=== PATIENT | female | born 1960 | race Caucasian/White ===

== ENCOUNTER 2019-11-21 12:45 | Emergency (ER) | payer OTHER, SELFPAY ==
[2019-11-21 12:47] VITALS: BP 132/76; PULSE 70; RESP 17; O2SAT 98; BMI 21.9
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
[2019-11-21 13:31] LABS: Basophils % 0.3 %; Eosinophils # 0.1 10^3/uL (0.0-0.8); Eosinophils % 1.6 %; Lymphocytes # 2.7 10^3/uL (0.8-4.8); Lymphocytes % 44.3 %; Mean Corpuscular HGB Conc 33.3 g/dL (30.0-36.0); Mean Corpuscular Hemoglobin 31.5 pg (28.0-34.0); Mean Corpuscular Volume 94.4 fL (81-99); Mean Platelet Volume 10.5 fL (7.4-10.4); Monocytes # 0.4 10^3/uL (0.2-0.9); Monocytes % 6.9 %; Neutrophils # 2.9 10^3/uL (1.8-7.7); Neutrophils % 46.6 %; Nucleated Red Blood Cells % 0 %; Platelet Count 192 10^3/cmm (130-400); Red Blood Count 4.45 10^6/uL (4.1-5.3); Red Cell Distribution Width 12.6 % (12.1-15.1); White Blood Count 6.2 10^3/uL (4.0-10.0)
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
[2019-11-21 13:48] VITALS: O2SAT 98
[2019-11-21 13:49] LABS: Anion Gap 17.1 (5-19); Blood Urea Nitrogen 27 mg/dL (6-20); Calcium 9.5 mg/dL (8.5-10.5); Carbon Dioxide 23 mmol/L (22-29); Chloride 101 mmol/L (98-107); Creatinine Clr Calc Pharmacy 99.3882; Glomerular Filtration Rate 102.3 mL/min (90-130); Glucose 102 mg/dL (65-115); Osmolality Calculated 281 mOsm/kg (285-295); Potassium 4.1 mmol/L (3.5-5.1); Sodium 137 mmol/L (136-145)
[2019-11-21] MEDS: ketorolac 60 mg/2 mL INJ IM (14:17)
[2019-11-21 14:34] LABS: Add Urine Microscopic? NO
[2019-11-21 14:40] LABS: Bilirubin Urine Neg (NEGATIVE); Blood Urine Neg (Negative); Glucose Urine UA Norm (Normal); Ketones Urine Negative (Negative); Leukocyte Esterase Urine Negative (Negative); Nitrate Urine Negative (Negative); Protein Urine Neg (Negative); Urine Appearance Clear (CLEAR); Urine Color Straw (Yellow); Urobilinogen Urine Norm (Negative); pH Urine 5 (5-7)
[2019-11-21 16:00] VITALS: BP 117/73; PULSE 65; RESP 16; O2SAT 95
== END 2019-11-21 16:01 | disposition home or self-care (01) ==
PROVIDERS: Emergency Provider Family Medicine; Family Provider Family Medicine; PCP Internal Medicine
DX: S39.012A Strain of muscle, fascia and tendon of lower back, initial encounter (principal); J43.9 Emphysema, unspecified; F17.200 Nicotine dependence, unspecified, uncomplicated; V89.2XXA Person injured in unspecified motor-vehicle accident, traffic, initial encounter
CPT/HCPCS: 36415; 70450; 72040; 80048; 81003; 85025; 96372; 99282; 99283; A9270; J1885

== ENCOUNTER 2020-09-18 10:50 | Emergency (ER) | payer OTHER, SELFPAY ==
[2020-09-18] VITALS (7 sets, daily range): BP systolic 134–146; BP diastolic 68–108; PULSE 54–74; RESP 16–20; TEMP 36.7; O2SAT 95–99; BMI 25.0
--- NOTE | 2020-09-18 11:00 | W.ED.CHESTPA ---
HPI - Chest Pain General: Chief Complaint: Chest Pain Stated Complaint: chest pain, pain in left shoulder Time Seen by Provider: 09/18/20 10:59 Source: patient Mode of arrival: ambulatory History of Present Illness: HPI narrative: 59-year-old female with no cardiac history presents with intermittent left-sided chest pain over the past 2 days. Becoming more frequent. Described it as sharp, stabbing, radiates towards left shoulder upper arm. Associated with shortness of breath. Episodes last approximately 30 seconds and then get better. Not associated with exertion or position. Not worse with movement, inspiration, or palpation. No associated nausea or diaphoresis. She took a Xanax and 3 of aspirin this morning. Over the past several days she has decided to stop taking some of her other routine medications including Prozac, gabapentin, Risperdal. She feels that they are giving her too many side effects. She does smoke every day. No recent worsening cough, fever, or pleuritic chest pain. No recent weight loss, heat intolerance, insomnia. complaint: chest pain Onset (ago): day(s) Timing of current episode: episodic Onset: during rest Pain location: left chest Pain radiation: left arm and left shoulder Quality: sharp and shooting Relieving factors: nothing Exacerbating factors: nothing Associated symptoms: Reports palpitations; Deny abdominal pain, fever(s), nausea or vomiting Review of Systems General: Reports: 10 or more systems reviewed and unremarkable except in HPI and below Const: Denies: fever(s), chills, body aches, change in weight or night sweats Eyes: Denies: change in vision or blurry vision Card: Reports: chest pain and palpitations; Denies: irregular heart rhythm, edema, swelling of feet/ankles, lightheadedness, dyspnea on exertion or orthopnea Resp: Denies: wheezing, pain on inspiration or change in phlegm color GI: Denies: abdominal pain, nausea or vomiting : Denies: flank pain, difficulty voiding or dysuria Musc: Denies: extremity pain, extremity swelling or muscle weakness Skin/Breast: Denies: rash, pruritus or erythema Neuro: Denies: headache(s), numbness in extremities or weakness in extremities Psych: Denies: anxiety or depression [facility] ED PFSH: Medical History (Updated 09/18/20 @ 14:37 by Darling Cedillo MD) Emphysema of lung Laceration of left rotator cuff Surgical History H/O eye surgery History of hysterectomy Hx of oophorectomy Social History Smoking and tobacco status: current every day smoker Physical Exam Const: COMMON NORMALS: no acute distress, average body habitus, patient oriented x3, healthy appearing and alert GENERAL APPEARANCE: cooperative, comfortable and anxious; not in distress and not ill appearing ORIENTATION/CONSCIOUSNESS: Yes oriented to person, Yes oriented to place and Yes oriented to time HENMT: COMMON NORMALS: normocephalic and atraumatic HEAD & SCALP: normocephalic and atraumatic FACE & SINUS: normal facial exam and face symmetric Eye: COMMON NORMALS: Equal, round and reactive pupils present, EOMs intact bilaterally, conjunctivae normal and negative for no scleral icterus PERIORBITAL: periorbital findings normal EYELID: eyelids normal CONJUNCTIVA: Yes conjunctivae normal PUPIL: Yes Equal, round and reactive pupils present Neck/C-Spine: COMMON NORMALS: full ROM, no lymphadenopathy and supple Lymph: LYMPHATIC: no lymphadenopathy noted Chest: COMMONS NORMALS: normal inspection of the chest and normal palpation of entire chest wall CHEST: No abnormal inspection of the chest, No crepitus and No Ecchymosis present Resp: COMMON NORMALS: normal respiratory effort and No use of accessory muscles EFFORT & INSPECTION: Yes able to speak in complete sentences, No tachypneic and No respiratory distress Cardio: COMMON NORMALS: regular rate, regular rhythm, S1 normal heart sound present, S2 normal heart sound present and No murmurs present (Cardio) RATE: regular rate RHYTHM: regular rhythm HEART SOUNDS: S1 normal heart sound present and S2 normal heart sound present GI: COMMON NORMALS: Normal to inspection, nondistended, normoactive bowel sounds present, Soft to palpation, non-tender and No hepatosplenomegaly present INSPECTION: Yes normal to inspection PALPATION: Yes Soft to palpation and Yes No hepatosplenomegaly present Extremity: COMMON NORMALS: normal to inspection, full ROM and capillary refill normal GENERAL: Yes normal exam except as noted Neuro: COMMON NORMALS: patient oriented x3, CN's II-XII intact bilaterally and no focal motor deficits SENSORIUM/ORIENTATION: Yes alert, Yes oriented to person, Yes oriented to place and Yes oriented to time Psych: COMMON NORMALS: mental status grossly normal and cooperative APPEARANCE: Yes grossly normal ACTIVITY/MOTOR BEHAVIOR: Yes appropriate eye contact MOOD & AFFECT: Yes anxious Skin: COMMON NORMALS: no rashes or lesions noted, no wounds and no jaundice GENERAL SKIN EXAM: no rashes or lesions noted Course Vital Signs: Vital signs: Vital Signs Temperature 98.1 F 09/18/20 11:03 Pulse Rate 74 09/18/20 15:19 Respiratory Rate 18 09/18/20 15:19 Blood Pressure 143/68 09/18/20 15:19 Pulse Oximetry 98 09/18/20 15:19 MDM - Chest Pain MDM Narrative: Medical decision making narrative: 59-year-old female with left-sided chest pain, episodic, becoming more frequent over the past 2 days. No known history of coronary artery disease. Baseline troponin minimally elevated,16- 2 hour repeat: 13 (delta -3) D-dimer: Minimally elevated 0.72, CTA: No acute PE or other abnormality Chest x-ray does not show any acute process. CRP normal?unlikely to be inflammatory or infectious process. Increased BUN to creatinine ratio on chemistry, with an anion gap of 25. On reevaluation, patient was sitting up, anxious, waiting to get discharged. She is not currently having any chest pain. Vital signs were noted to be stable. Discussed other possible causes of her chest pain, recommended that she follow-up promptly with her PCP. Differential Diagnosis: Cardiac arrest differential diagnosis: Likely acute massive pulmonary embolism and acute myocardial infarction Medical Records: Attestation: I reviewed the patient's medical records. Lab Data: Labs: Lab Results 09/18/20 09/18/20 09/18/20 Range/Units 11:37 11:38 11:38 WBC (4.0-10.0) 10^3/ uL RBC (4.1-5.3) 10^6/u L Hgb (11.5-15.3) g/dL Hct (37.0-47.0) % MCV (81-99) fL MCH (28.0-34.0) pg MCHC (30.0-36.0) g/dL RDW (12.1-15.1) % Plt Count (130-400) 10^3/c mm MPV (7.4-10.4) fL Neut % (Auto) % Lymph % (Auto) % [place] % (Auto) % Eos % (Auto) % Baso % (Auto) % Neut # (Auto) (1.8-7.7) 10^3/u L Lymph # (Auto) (0.8-4.8) 10^3/u L [place] # (Auto) (0.2-0.9) 10^3/u L Eos # (Auto) (0.0-0.8) 10^3/u L Baso # (Auto) (0.0-0.1) 10^3/u L Nucleated RBC % (a uto) % Nucleated RBCs # /100WBC PT Cancelled INR Cancelled D-Dimer Cancelled Sodium 145 (136-145) mmol/L Potassium 3.6 (3.5-5.1) mmol/L Chloride 99 (98-107) mmol/L Carbon Dioxide 24 (22-29) mmol/L Anion Gap 25.6 H (5-19) BUN 21 H (6-20) mg/dL Creatinine 0.7 (0.5-0.9) mg/dL GFR Calculation 85.6 L (90-130) mL/min Glucose 96 (65-115) mg/dL Calculated Osmolal ity 303 H (285-295) mOsm/k g Lactate (0.5-2.2) mmol/L Calcium 8.9 (8.5-10.5) mg/dL Magnesium (1.7-2.3) mg/dL Total Bilirubin 0.3 (0.15-1.2) mg/dL AST 32 (0-32) U/L ALT 21 (0-33) U/L Alkaline Phosphata se 82 (35-105) IU/L Troponin T Baselin e (0-10) ng/L Troponin T 120 Min chicken ranch (0-10) ng/L Delta Troponin T (0-10) ABS# C-Reactive Protein (0.0-4.9) mg/L NT-Pro-B Natriuret Pep 42 (0-125) pg/mL Total Protein 6.5 L (6.6-8.7) g/dL Albumin 4.1 (3.5-5.2) g/dL Globulin 2.4 (1.3-4.6) g/dL Urine Color Yellow (Yellow) Urine Appearance Clear (CLEAR) Urine pH 5 (5-7) Ur Specific Gravit y 1.020 (1.005-1.030) Urine Protein Neg (Negative) Urine Glucose (UA) Norm (Normal) Urine Ketones Negative (Negative) Urine Blood Neg (Negative) Urine Nitrate Negative (Negative) Urine Bilirubin Neg (Negative) Urine Urobilinogen Neg (Negative) mg/dL Ur Leukocyte Bianka ase Negative (Negative) 09/18/20 09/18/20 09/18/20 Range/Units 11:38 11:38 11:38 WBC 7.6 (4.0-10.0) 10^3/ uL RBC 4.36 (4.1-5.3) 10^6/u L Hgb 13.7 (11.5-15.3) g/dL Hct 41.7 (37.0-47.0) % MCV 95.6 (81-99) fL MCH 31.4 (28.0-34.0) pg MCHC 32.9 (30.0-36.0) g/dL RDW 12.5 (12.1-15.1) % Plt Count 180 (130-400) 10^3/c mm MPV 10.7 H (7.4-10.4) fL Neut % (Auto) 57.4 % Lymph % (Auto) 35.3 % [place] % (Auto) 5.8 % Eos % (Auto) 0.7 % Baso % (Auto) 0.5 % Neut # (Auto) 4.38 (1.8-7.7) 10^3/u L Lymph # (Auto) 2.7 (0.8-4.8) 10^3/u L [place] # (Auto) 0.4 (0.2-0.9) 10^3/u L Eos # (Auto) 0.1 (0.0-0.8) 10^3/u L Baso # (Auto) 0.0 (0.0-0.1) 10^3/u L Nucleated RBC % (a uto) 0 % Nucleated RBCs # 0.0 /100WBC PT INR D-Dimer Sodium (136-145) mmol/L Potassium (3.5-5.1) mmol/L Chloride (98-107) mmol/L Carbon Dioxide (22-29) mmol/L Anion Gap (5-19) BUN (6-20) mg/dL Creatinine (0.5-0.9) mg/dL GFR Calculation (90-130) mL/min Glucose (65-115) mg/dL Calculated Osmolal ity (285-295) mOsm/k g Lactate 0.9 (0.5-2.2) mmol/L Calcium (8.5-10.5) mg/dL Magnesium (1.7-2.3) mg/dL Total Bilirubin (0.15-1.2) mg/dL AST (0-32) U/L ALT (0-33) U/L Alkaline Phosphata se (35-105) IU/L Troponin T Baselin e 16 H (0-10) ng/L Troponin T 120 Min chicken ranch (0-10) ng/L Delta Troponin T (0-10) ABS# C-Reactive Protein (0.0-4.9) mg/L NT-Pro-B Natriuret Pep (0-125) pg/mL Total Protein (6.6-8.7) g/dL Albumin (3.5-5.2) g/dL Globulin (1.3-4.6) g/dL Urine Color (Yellow) Urine Appearance (CLEAR) Urine pH (5-7) Ur Specific Gravit y (1.005-1.030) Urine Protein (Negative) Urine Glucose (UA) (Normal) Urine Ketones (Negative) Urine Blood (Negative) Urine Nitrate (Negative) Urine Bilirubin (Negative) Urine Urobilinogen (Negative) mg/dL Ur Leukocyte Bianka ase (Negative) 09/18/20 09/18/20 09/18/20 Range/Units 11:38 11:38 13:25 WBC (4.0-10.0) 10^3/ uL RBC (4.1-5.3) 10^6/u L Hgb (11.5-15.3) g/dL Hct (37.0-47.0) % MCV (81-99) fL MCH (28.0-34.0) pg MCHC (30.0-36.0) g/dL RDW (12.1-15.1) % Plt Count (130-400) 10^3/c mm MPV (7.4-10.4) fL Neut % (Auto) % Lymph % (Auto) % [place]uming % (Auto) % Eos % (Auto) % Baso % (Auto) % Neut # (Auto) (1.8-7.7) 10^3/u L Lymph # (Auto) (0.8-4.8) 10^3/u L Cuming # (Auto) (0.2-0.9) 10^3/u L Eos # (Auto) (0.0-0.8) 10^3/u L Baso # (Auto) (0.0-0.1) 10^3/u L Nucleated RBC % (a uto) % Nucleated RBCs # /100WBC PT INR D-Dimer Sodium (136-145) mmol/L Potassium (3.5-5.1) mmol/L Chloride (98-107) mmol/L Carbon Dioxide (22-29) mmol/L Anion Gap (5-19) BUN (6-20) mg/dL Creatinine (0.5-0.9) mg/dL GFR Calculation (90-130) mL/min Glucose (65-115) mg/dL Calculated Osmolal ity (285-295) mOsm/k g Lactate (0.5-2.2) mmol/L Calcium (8.5-10.5) mg/dL Magnesium 2.1 (1.7-2.3) mg/dL Total Bilirubin (0.15-1.2) mg/dL AST (0-32) U/L ALT (0-33) U/L Alkaline Phosphata se (35-105) IU/L Troponin T Baselin e (0-10) ng/L Troponin T 120 Min chicken ranch 13.00 H (0-10) ng/L Delta Troponin T -3.00 L (0-10) ABS# C-Reactive Protein 2.4 (0.0-4.9) mg/L NT-Pro-B Natriuret Pep (0-125) pg/mL Total Protein (6.6-8.7) g/dL Albumin (3.5-5.2) g/dL Globulin (1.3-4.6) g/dL Urine Color (Yellow) Urine Appearance (CLEAR) Urine pH (5-7) Ur Specific Gravit y (1.005-1.030) Urine Protein (Negative) Urine Glucose (UA) (Normal) Urine Ketones (Negative) Urine Blood (Negative) Urine Nitrate (Negative) Urine Bilirubin (Negative) Urine Urobilinogen (Negative) mg/dL Ur Leukocyte Bianka ase (Negative) Discharge Plan Discharge Patient Disposition: Home Clinical Impression: Chest pain not due to acute coronary syndrome Chest pain Qualifiers: Chest pain type: precordial pain Qualified Code(s): R07.2 - Precordial pain Condition: Stable Prescriptions: No Action fluoxetine 40 mg capsule 40 mg PO DAILY@0500 RF: 0 cetirizine [Zyrtec] 10 mg Tablet 10 mg PO DAILY@0500 RF: 0 alprazolam 0.5 mg tablet 0.5 mg PO TID PRN (Reason: Anxiety) RF: 0 diphenhydramine HCl [Benadryl] 25 mg Capsule 25 mg PO BEDTIME@2100 RF: 0 trazodone 150 mg tablet 150 mg PO BEDTIME@2100 RF: 0 PNV cmb#95-ferrous fumarate-FA [] 28 mg iron- 800 mcg Tablet 1 tab PO DAILY@0500 RF: 0 Aspir-81 81 mg Tablet,Delayed Release (Dr/Ec) 81 mg PO DAILY@0500 RF: 0 gabapentin 100 mg capsule 100 mg PO BID@0500,2100 RF: 0 risperidone 0.5 mg tablet 0.5 mg PO BEDTIME@2100 RF: 0 Discharge Orders: Discharge ED (Routine); Ordered 09/18/20 Ordered By: Darling Cedillo Referrals: Kris Mcgraw DO [Primary Care Provider] - Discharge Diet: Usual diet Discharge Activity: Resume usual activity Patient Instructions: Chest Pain - Noncardiac Activity Restrictions/Additional Instructions: Call to schedule follow-up appoint with your primary care doctor in the next 3 to 5 days. Return immediately to the ER if you develop fever, worsening chest pain, difficulty breathing, or any other concerning symptoms. Coding Level of Care Code ED Pricing Actuary for Billy Fwyan Exam Comprehensive
--- NOTE | 2020-09-18 11:01 | ECG_ITS ---
[facility] Test Date: 2020-09-18 Pat Name: Charis Redd Department: Room: Gender: Female Software Engineer Advisor: : 1960 Requested By: Darling Cedillo Order Number: [id number] Antoni MD: Daniel Joseph M.D. Measurements Intervals [place] Rate: 66 P: 56 OK: 162 QRS: 42 QRSD: 94 T: 24 QT: 427 QTc: 449 Interpretive Statements SINUS RHYTHM No previous ECG available for comparison Electronically Signed On 09-18-2020 17:52:03 CHARITY FUNDRAISER by Daniel Joseph M.D. [id number]
--- NOTE | 2020-09-18 11:01 | XRR_ITS ---
PROCEDURE INFORMATION: Exam: XR Chest, 1 View Exam date and time: 09/18/2020 11:19 AM Age: 59 years old Clinical indication: Chest pain; Prior surgery TECHNIQUE: Imaging protocol: XR of the chest Views: 1 view. COMPARISON: No relevant prior studies available. FINDINGS: Tubes, catheters and devices: There is a surgical suture projecting over the left humeral head. Lungs: Unremarkable. No consolidation. Pleural space: Unremarkable. No pleural effusion. No pneumothorax. Heart/Mediastinum: Unremarkable. No cardiomegaly. Bones/joints: Unremarkable. XR/XR chest 1V portable [id number] IMPRESSION: There are no acute concerning abnormalities.
[2020-09-18 11:42] LABS: Add Urine Microscopic? NO
[2020-09-18 11:57] LABS: Bilirubin Urine Neg (Negative); Blood Urine Neg (Negative); Glucose Urine UA Norm (Normal); Ketones Urine Negative (Negative); Leukocyte Esterase Urine Negative (Negative); Nitrate Urine Negative (Negative); Protein Urine Neg (Negative); Urine Appearance Clear (CLEAR); Urine Color Yellow (Yellow); Urobilinogen Urine Neg (Negative); pH Urine 5 (5-7)
[2020-09-18 12:10] LABS: Troponin(5th) Baseline 16 ng/L (0-10)
[2020-09-18 12:16] LABS: Alanine Aminotransferase 21 U/L (0-33); Albumin Level 4.1 g/dL (3.5-5.2); Alkaline Phosphatase 82 IU/L (35-105); Anion Gap 25.6 (5-19); Aspartate Amino Transferase 32 U/L (0-32); Blood Urea Nitrogen 21 mg/dL (6-20); Calcium 8.9 mg/dL (8.5-10.5); Carbon Dioxide 24 mmol/L (22-29); Chloride 99 mmol/L (98-107); Globulin 2.4 g/dL (1.3-4.6); Glomerular Filtration Rate 85.6 mL/min (90-130); Glucose 96 mg/dL (65-115); NT Pro B Type Natriuretic Pept 42 pg/mL (0-125); Osmolality Calculated 303 mOsm/kg (285-295); Potassium 3.6 mmol/L (3.5-5.1); Sodium 145 mmol/L (136-145); Total Bilirubin 0.3 mg/dL (0.15-1.2); Total Protein 6.5 g/dL (6.6-8.7)
[2020-09-18 12:24] LABS: Basophils % 0.5 %; Eosinophils # 0.1 10^3/uL (0.0-0.8); Eosinophils % 0.7 %; Hematocrit 41.7 % (37.0-47.0); Hemoglobin 13.7 g/dL (11.5-15.3); Lymphocytes # 2.7 10^3/uL (0.8-4.8); Lymphocytes % 35.3 %; Mean Corpuscular HGB Conc 32.9 g/dL (30.0-36.0); Mean Corpuscular Hemoglobin 31.4 pg (28.0-34.0); Mean Corpuscular Volume 95.6 fL (81-99); Mean Platelet Volume 10.7 fL (7.4-10.4); Monocytes # 0.4 10^3/uL (0.2-0.9); Monocytes % 5.8 %; Neutrophils # 4.38 10^3/uL (1.8-7.7); Neutrophils % 57.4 %; Nucleated Red Blood Cells % 0 %; Platelet Count 180 10^3/cmm (130-400); Red Blood Count 4.36 10^6/uL (4.1-5.3); Red Cell Distribution Width 12.5 % (12.1-15.1); White Blood Count 7.6 10^3/uL (4.0-10.0)
[2020-09-18 12:40] LABS: C Reactive Protein 2.4 mg/L (0.0-4.9); Lactate (Lactic Acid level) 0.9 mmol/L (0.5-2.2)
--- NOTE | 2020-09-18 13:01 | ECG_ITS ---
[facility] Test Date: 2020-09-18 Pat Name: Charis Redd Department: Room: Gender: Female Supervisor Post Wave: : 1960 Requested By: Darling Cedillo Order Number: [id number] Antoni MD: Daniel Joseph M.D. Measurements Intervals [place] Rate: 58 P: 56 SD: 163 QRS: 29 QRSD: 95 T: 24 QT: 434 QTc: 427 Interpretive Statements SINUS BRADYCARDIA WITH SINUS ARRHYTHMIA Compared to ECG 09/18/2020 11:07:56 Sinus rhythm no longer present Electronically Signed On 09-19-2020 16:59:59 BENDING PRESS OPERATOR by Daniel Joseph M.D. [id number]
[2020-09-18 13:13] LABS: Magnesium 2.1 mg/dL (1.7-2.3)
--- NOTE | 2020-09-18 13:18 | CTR_ITS ---
PROCEDURE INFORMATION: Exam: CT Angiography Chest With Contrast Exam date and time: 09/18/2020 1:27 PM Age: 59 years old Clinical indication: Chest pain; Additional info: Chest pain, elevated ddimer TECHNIQUE: Imaging protocol: Computed tomographic angiography of the chest with intravenous contrast. 3D rendering (Not supervised by radiologist): MIP and/or 3D reconstructed images were created by the technologist. Radiation optimization: All CT scans at this facility use at least one of these dose optimization techniques: automated exposure control; mA and/or kV adjustment per patient size (includes targeted exams where dose is matched to clinical indication); or iterative reconstruction. Contrast material: VISI; Contrast volume: 95 ml; Contrast route: INTRAVENOUS (IV); COMPARISON: CR XR chest 1V portable [id number] 09/18/2020 11:10 AM RADIATION DOSE METRICS: Total DLP (mGy-cm): 548.64 FINDINGS: Pulmonary arteries: Normal. No pulmonary emboli. Aorta: Unremarkable. No aortic aneurysm. No aortic dissection. Lungs: Unremarkable. No consolidation. No masses. Pleural space: Unremarkable. No pneumothorax. No pleural effusion. Heart: Unremarkable. No cardiomegaly. No pericardial effusion. Lymph nodes: Unremarkable. No enlarged lymph nodes. Bones/joints: Unremarkable. No acute fracture. Soft tissues: Unremarkable. CT/CT angio chest PE protcl [id number] IMPRESSION: There is no evidence for a pulmonary embolus. Radiation Dose CTDIVOL = (mGy): DLP = 548.64 (mGy-cm)
[2020-09-18] MEDS: iohexol 350 mg/mL 100 mL Btl IV (13:48)
== END 2020-09-18 15:23 | disposition home or self-care (01) ==
PROVIDERS: Emergency Provider Family Medicine; PCP Internal Medicine
DX: R07.2 Precordial pain (principal); I24.9 Acute ischemic heart disease, unspecified; Z79.82 Long term (current) use of aspirin; J43.9 Emphysema, unspecified; F17.210 Nicotine dependence, cigarettes, uncomplicated
CPT/HCPCS: 12345; 71045; 71275; 80053; 81003; 83605; 83735; 83880; 84484; 85025; 86140; 93005; 99282; 99284; Q9967

== ENCOUNTER 2021-01-25 09:25 | Outpatient (CLI) | payer OTHER, SELFPAY ==
--- NOTE | 2021-01-25 09:29 | MM_ITS ---
WS: [id number] BILATERAL SCREENING DIGITAL MAMMOGRAM WITH CAD HISTORY: SCREENING COMPARISON: 06/24/2014 Bilateral CC and MLO views submitted. Computer aided detection analyzed. Breast composition: There are scattered areas of fibroglandular density. No suspicious masses, microc alcifications or architectural distortion. MM/[place] [id number] IMPRESSION: BI-RADS: 1-Negative FOLLOW UP: 1 Year Follow-up
== END 2021-01-25 09:26 | disposition home or self-care (01) ==
PROVIDERS: PCP Internal Medicine; Visit Provider Internal Medicine
DX: Z12.31 Encounter for screening mammogram for malignant neoplasm of breast (principal)
CPT/HCPCS: 77067

== ENCOUNTER 2022-04-11 10:50 | Outpatient (CLI) | payer OTHER, SELFPAY ==
--- NOTE | 2022-04-11 11:03 | MM_ITS ---
WS: [id number] BILATERAL SCREENING DIGITAL BREAST TOMOSYNTHESIS MAMMOGRAM WITH CAD HISTORY: SCREENING COMPARISON: 01/25/2021 and 06/24/2014 Bilateral CC and MLO views with tomosynthesis and synthetic mammography submitted. Computer aided det ection analyzed. Breast composition: There are scattered areas of fibroglandular density. No suspicious masses, microc alcifications or architectural distortion. Asymmetries posterior to each nipple. Very similar to the prior study from 2013. No suspicious mass or calcification. MM/[id number] IMPRESSION: BI-RADS: 2-Benign FOLLOW UP: 1 Year Follow-up
== END 2022-04-11 10:51 | disposition home or self-care (01) ==
PROVIDERS: PCP Internal Medicine; Visit Provider Internal Medicine
DX: Z12.31 Encounter for screening mammogram for malignant neoplasm of breast (principal)
CPT/HCPCS: 77063; 77067

== ENCOUNTER 2024-03-12 19:07 | Emergency (ER) | payer SELFPAY ==
[2024-03-12 20:15] VITALS: BP 121/66; PULSE 85; RESP 18; TEMP 37.2; O2SAT 98; BMI 19.8
--- NOTE | 2024-03-12 21:09 | ED_ITS ---
HPI - Nausea/Vomiting/Diarrhea 2 General: Chief complaint: Nausea/Vomiting/Diarrhea Stated complaint: N/V, nose bleeds Time Seen by Provider: 03/12/24 20:44 History of Present Illness: Patient presents to the ER with complaints of nausea and vomiting for the last 5 days she has also had chills and fever up to 100.2. Patient also reports a nosebleed 1 day and think she might have a nasal abscess on her left naris. Patient is not been around any sick contacts during this time. And does not get nausea or vomiting very often. Patient says she just has some mild achy diffuse abdominal pain. She also complains of having bruises up and down her legs bilaterally in various stages of healing with no known trauma. Review of Systems 2 General: Reports: 10 or more systems reviewed and unremarkable except in HPI and below PFSH ED 2 PFSH: Medical History (Updated 03/13/24 @ 02:48 by Jareth Banerjee DO) Laceration of left rotator cuff Emphysema of lung Surgical History H/O eye surgery Hx of oophorectomy History of hysterectomy Social History Smoking and tobacco/nicotine status: current every day tobacco/nicotine user Physical Exam 2 Const: COMMON NORMALS: no acute distress, average body habitus, patient oriented x3, no limitations, healthy appearing, alert and well nourished HENMT: COMMON NORMALS: normocephalic, atraumatic, hearing grossly normal bilaterally, external ears normal, Normal external nose present, Normal nasal mucous membranes and turbinates present, moist oral mucous membranes and oropharynx normal HEAD & SCALP: normocephalic and atraumatic NOSE: Normal external nose present and Normal nasal mucous membranes and turbinates present EXTERNAL EAR: Yes external ears normal Neck/C-Spine: COMMON NORMALS: no JVD Chest: COMMONS NORMALS: normal inspection of the chest and normal palpation of entire chest wall Resp: COMMON NORMALS: normal respiratory effort, No retractions and No use of accessory muscles Cardio: COMMON NORMALS: no JVD, regular rate, regular rhythm, S1 normal heart sound present, S2 normal heart sound present, No gallops present (Cardio), No clicks present (Cardio), No murmurs present (Cardio) and No rub (Cardio) R ATE: regular rate RHYTHM: regular rhythm HEART SOUNDS: S1 normal heart sound present and S2 normal heart sound present GI: COMMON NORMALS: Normal to inspection, nondistended, normoactive bowel sounds present, Soft to palpation, non-tender, No hepatosplenomegaly present and no masses PALPATION: Yes Soft to palpation and Yes No hepatosplenomegaly present Neuro: COMMON NORMALS: patient oriented x3 SENSORIUM/ORIENTATION: Yes alert Skin: NARRATIVE SKIN EXAM: Various healing stages of bruises up and down both legs. Course 2 Vital Signs: Vital signs: Vital Signs Temperature 99.0 F 03/12/24 20:15 Pulse Rate 79 03/13/24 02:44 Respiratory Rate 18 03/12/24 20:15 Blood Pressure 124/66 03/13/24 02:44 Pulse Oximetry 96 03/13/24 02:44 Oxygen Delivery Me thod Room Air 03/12/24 20:15 MDM - Nausea/Vomiting/Diarrhea Medical Decision Making Patient lab work that revealed a white count of 40,000, platelet count of 12, hemoglobin of 9.2, metabolic panel mostly unremarkable, potassium 3.4, glucose 124, lactate dehydrogenase 590, procalcitonin 0.08, urinalysis showed 3+ blood, patient had a contrasted CT scan of the chest abdomen pelvis which showed no large masses and only showed a 2.1 cm hypodense lesion in the left adrenal gland. These results was discussed with the patient, these results was discussed with Dr. Nunez who thinks the patient may have leukemia and should go to a larger facility is better equipped to handle an acute event. Discussed this with the patient patient would like to try [facility] first. Dr. Morrison transfer line who said the [facility] hospitalist thought she should go through the ER first, the ER doc thought she needed we needed to talk to heme-onc first Dr. Dunham was consulted who agreed that she is appropriate for treatment at their facility, she thought she may have CLL with hemolytic anemia and/or ITP, Dr. Camejo ER doc will be the accepting physician Differential Diagnosis Likely gastroenteritis Medical Records I reviewed the patient's medical records. Lab Data I reviewed the patient's lab results. 03/12/24 22:40 03/12/24 21:13 Radiology Impressions Chest/Abdomen/Pelvis CT 03/12/24 23:30 IMPRESSION: 1. No focal consolidation, pleural effusion or suspicious pulmonary nodules or masses. 2. There is a 2.1 cm hypodense lesion in the left adrenal gland which is incompletely assessed on this examination. Consider dedicated thyroid ultrasound for further evaluation. IMPRESSION: 1. No bowel obstruction or inflammatory process associated with the bowel. 2. No free air or significant free fluid in the abdomen or pelvis. 3. The appendix is not visualized but there are no secondary signs of acute appendicitis. Laboratory Results WBC 40.82 10^3/uL (3.29-11.43) H* 03/12/24 22:40 RBC 2.71 10^6/uL (3.85-5.65) L 03/12/24 21:13 Hgb 9.20 g/dL (11.27-16.99) L 03/12/24 21:13 Hct 27.5 % (36-47) L 03/12/24 21:13 MCV 101.5 fl (85-98) H 03/12/24 21:13 MCH 33.9 pg (27-33) H 03/12/24 21:13 MCHC 33.5 g/dL (30-55) 03/12/24 21:13 RDW 14.5 % (12.1-15.1) 03/12/24 21:13 Plt Count 12 10^3/cmm (157-399) L* 03/12/24 22:40 MPV Not Reportable 03/12/24 21:13 Lymph % (Auto) Not Reportable 03/12/24 21:13 [place] % (Auto) Not Reportable 03/12/24 21:13 Lymph # (Auto) Not Reportable 03/12/24 21:13 [place] # (Auto) Not Reportable 03/12/24 21:13 Total Counted 100 (0-100) 03/12/24 21:13 Atypical Lymphs % 6.0 % (0-5) H 03/12/24 21:13 Absolute Neutrophils 14.5 10^3/cmm (1.4-6.5) H 03/12/24 21:13 Segmented Neutrophils 27 % 03/12/24 21:13 Abs Segm Neuts (Man) 10.9 10/cmm (1.6-7.1) H 03/12/24 21:13 Band Neutrophils 9.0 % 03/12/24 21:13 Abs Band Neuts (Man) 3.6 10^3/cmm (0.0-1.2) H 03/12/24 21:13 Absolute Lymphocytes 17.7 10^3/cmm (1.2-3.4) H 03/12/24 21:13 Lymphocytes (Manual) 38 % 03/12/24 21:13 Monocytes (Manual) 15.0 % 03/12/24 21:13 Absolute Monocytes 6.0 10^3/cmm (0.1-0.6) H 03/12/24 21:13 Eosinophils (Manual) 0 % 03/12/24 21:13 Absolute Eosinophils 0.0 10^3/cmm (0.0-0.7) 03/12/24 21:13 Basophils (Manual) 0.0 % 03/12/24 21:13 Absolute Basophils 0.0 10^3/cmm (0.0-0.2) 03/12/24 21:13 Myelocytes 2.0 % 03/12/24 21:13 Nucleated RBCs 3.0 /100WBC (0-1) H 03/12/24 21:13 Smudge Cells Trace 03/12/24 21:13 Platelet Estimate Decreased (Normal) L 03/12/24 21:13 PT 14.40 SECONDS (12.1-14.9) 03/12/24 21:13 INR 1.08 (0.8-1.2) 03/12/24 21:13 APTT 31.9 SECONDS (23.9-36.7) 03/12/24 21:13 Fibrinogen 706 mg/dL (174-498) H 03/12/24 21:13 Sodium 137 mmol/L (136-145) 03/12/24 21:13 Potassium 3.4 mmol/L (3.5-5.1) L 03/12/24 21:13 Chloride 99 mmol/L (98-107) 03/12/24 21:13 Carbon Dioxide 28 mmol/L (22-29) 03/12/24 21:13 Anion Gap 13.4 (5-19) 03/12/24 21:13 BUN 17 mg/dL (8-23) 03/12/24 21:13 Creatinine 0.5 mg/dL (0.5-0.9) 03/12/24 21:13 GFR Calculation 124.6 mL/min (90-130) 03/12/24 21:13 Glucose 124 mg/dL (65-115) H 03/12/24 21:13 Calculated Osmolality 287 mOsm/kg (285-295) 03/12/24 21:13 Lactic Acid 1.0 mmol/L (0.5-2.2) 03/12/24 21:13 Calcium 9.1 mg/dL (8.5-10.5) 03/12/24 21:13 Magnesium 2.2 mg/dL (1.7-2.3) 03/12/24 21:13 Total Bilirubin 0.6 mg/dL (0.15-1.2) 03/12/24 21:13 AST 32 U/L (0-32) 03/12/24 21:13 ALT 20 U/L (0-33) 03/12/24 21:13 Alkaline Phosphatase 89 U/L (35-105) 03/12/24 21:13 Lactate Dehydrogenase 590 U/L (135-214) H 03/12/24 21:13 Total Protein 7.2 g/dL (6.6-8.7) 03/12/24 21:13 Albumin 3.8 g/dL (3.5-5.2) 03/12/24 21:13 Globulin 3.4 g/dL (1.3-4.6) 03/12/24 21:13 Lipase 21 U/L (13-60) 03/12/24 21:13 Procalcitonin 0.08 ng/mL (0-0.5) 03/12/24 21:13 Urine Color Dark yellow (Yellow) 03/12/24 21:36 Urine Appearance Slightly cloudy (CLEAR) 03/12/24 21:36 Urine pH 7 (5-7) 03/12/24 21:36 Ur Specific [place] 1.010 (1.005-1.030) 03/12/24 21:36 Urine Protein Neg (Negative) 03/12/24 21:36 Urine Glucose (UA) Norm (Normal) 03/12/24 21:36 Urine Ketones Negative (Negative) 03/12/24 21:36 Urine Blood 3+ (Negative) H 03/12/24 21:36 Urine Nitrate Negative (Negative) 03/12/24 21:36 Urine Bilirubin Neg (Negative) 03/12/24 21:36 Urine Urobilinogen 8 mg/dL (Negative) H 03/12/24 21:36 Ur Leukocyte Esterase Negative (Negative) 03/12/24 21:36 Urine RBC 10-15 /hpf (0-2) H 03/12/24 21:36 Urine WBC 0-4 /hpf (0-5) H 03/12/24 21:36 Ur Squamous Epith Cells 0-4 /hpf (0-5) H 03/12/24 21:36 Calcium Oxalate Crystal 10-15 /hpf H 03/12/24 21:36 Amorphous Sediment Not Reportable 03/12/24 21:36 Urine Bacteria 1+ /hpf (NONE) H 03/12/24 21:36 Urine Mucus 2+ /hpf 03/12/24 21:36 All radiology interpretation(s) finalized by discharge Discharge Plan Discharge Clinical Impression: Thrombocytopenia Leukocytosis Qualifiers: Leukocytosis type: unspecified Qualified Code(s): D72.829 - Elevated white blood cell count, unspecified Anemia Qualifiers: Anemia type: unspecified type Qualified Code(s): D64.9 - Anemia, unspecified Condition: Stable Prescriptions: No Action fluoxetine 40 mg capsule 40 mg PO DAILY@0500 cetirizine [Zyrtec] 10 mg Tablet 10 mg PO DAILY@0500 alprazolam 0.5 mg tablet 0.5 mg PO TID PRN (Reason: Anxiety) diphenhydramine HCl [Benadryl] 25 mg Capsule 25 mg PO BEDTIME@2100 trazodone 150 mg tablet 150 mg PO BEDTIME@2100 PNV cmb#95-ferrous fumarate-FA [] 28 mg iron- 800 mcg Tablet 1 tab PO DAILY@0500 Aspir-81 81 mg Tablet,Delayed Release (Dr/Ec) 81 mg PO DAILY@0500 gabapentin 100 mg capsule 100 mg PO BID@0500,2100 risperidone 0.5 mg tablet 0.5 mg PO BEDTIME@2100 Referrals: Kris Mcgraw DO [Primary Care Provider] - Coding Level of Care Code ED Vac[employer]ic for [facility]
[2024-03-12 21:26] LABS: Hematocrit 27.5 % (36-47); Mean Corpuscular HGB Conc 33.5 g/dL (30-55); Mean Corpuscular Hemoglobin 33.9 pg (27-33); Mean Corpuscular Volume 101.5 fl (85-98); Red Blood Count 2.71 10^6/uL (3.85-5.65); Red Cell Distribution Width 14.5 % (12.1-15.1)
[2024-03-12 21:44] LABS: Alanine Aminotransferase 20 U/L (0-33); Albumin Level 3.8 g/dL (3.5-5.2); Alkaline Phosphatase 89 U/L (35-105); Anion Gap 13.4 (5-19); Aspartate Amino Transferase 32 U/L (0-32); Blood Urea Nitrogen 17 mg/dL (8-23); Calcium 9.1 mg/dL (8.5-10.5); Carbon Dioxide 28 mmol/L (22-29); Chloride 99 mmol/L (98-107); Creatinine Clr Calc Pharmacy 105.2596; Globulin 3.4 g/dL (1.3-4.6); Glomerular Filtration Rate 124.6 mL/min (90-130); Glucose 124 mg/dL (65-115); Lipase 21 U/L (13-60); Magnesium 2.2 mg/dL (1.7-2.3); Osmolality Calculated 287 mOsm/kg (285-295); Potassium 3.4 mmol/L (3.5-5.1); Sodium 137 mmol/L (136-145); Total Bilirubin 0.6 mg/dL (0.15-1.2); Total Protein 7.2 g/dL (6.6-8.7)
[2024-03-12 22:27] LABS: Slide Review Slide Review Perform
[2024-03-12 22:28] LABS: White Blood Count 40.21 10^3/uL (3.29-11.43)
[2024-03-12 22:29] LABS: Platelet Count 10 10^3/cmm (157-399)
[2024-03-12 22:30] LABS: Total Cells Counted 100 (0-100)
[2024-03-12 22:31] LABS: Eosinophils 0 %
[2024-03-12 22:32] LABS: Platelet Estimate Decreased (Normal); Smudge Cells Trace
[2024-03-12 22:36] LABS: Bilirubin Urine Neg (Negative); Blood Urine 3+ (Negative); Glucose Urine UA Norm (Normal); Ketones Urine Negative (Negative); Leukocyte Esterase Urine Negative (Negative); Nitrate Urine Negative (Negative); Protein Urine Neg (Negative); Urine Appearance Slightly Cloudy (CLEAR); Urine Color Dark Yellow (Yellow); Urobilinogen Urine 8 mg/dL (Negative); pH Urine 7 (5-7)
[2024-03-12 22:41] LABS: Add Urine Microscopic? YES
[2024-03-12 22:42] LABS: Bacteria Urine 1+ /hpf; Mucus Urine 2+ /hpf; Squamous Epithelial Cell Urine 0-4 /hpf (0-5); WBC Urine 0-4 /hpf (0-5)
[2024-03-12 22:43] LABS: Add Urine Culture? Yes
[2024-03-12 22:53] LABS: INR 1.08 (0.8-1.2)
[2024-03-12 22:57] LABS: White Blood Count 40.82 10^3/uL (3.29-11.43)
[2024-03-12 22:58] VITALS: BP 118/56; PULSE 81; O2SAT 94
[2024-03-12 22:58] LABS: Platelet Count 12 10^3/cmm (157-399)
[2024-03-12 23:16] VITALS: BP 116/61; PULSE 83; O2SAT 94
--- NOTE | 2024-03-12 23:30 | CTR_ITS ---
PROCEDURE INFORMATION: Exam: CT Chest With Contrast; Diagnostic Exam date and time: 03/12/2024 11:50 PM Age: 63 years old Clinical indication: Nausea and vomiting; Other: N/v; Prior surgery; Surgery date: 6+ months; Surgery type: Hyst; Additional info: N/v, leukocytosis, thrombocytopenia TECHNIQUE: Imaging protocol: Diagnostic computed tomography of the chest with contrast. Radiation optimization: All CT scans at this facility use at least one of these dose optimization techniques: automated exposure control; mA and/or kV adjustment per patient size (includes targeted exams where dose is matched to clinical indication); or iterative reconstruction. Contrast material: OMNI 350; Contrast volume: 100 ml; Contrast route: INTRAVENOUS (IV); COMPARISON: CT angio chest PE protcl [id number] 09/18/2020 1:31 PM RADIATION DOSE METRICS: Total DLP (mGy-cm): 225 FINDINGS: Lungs: Unremarkable. No consolidation. No masses. Pleural spaces: Unremarkable. No pneumothorax. No pleural effusion. Heart: Unremarkable. No cardiomegaly. No pericardial effusion. Lymph nodes: Unremarkable. No enlarged lymph nodes. Vasculature: Unremarkable. No aortic aneurysm. Adrenal glands: There is a 2.1 cm hypodense lesion in the left adrenal gland which is incompletely assessed on this examination. Consider dedicated thyroid ultrasound for further evaluation. Bones/joints: Unremarkable. No acute fracture. Soft tissues: Unremarkable. PROCEDURE INFORMATION: Exam: CT Abdomen And Pelvis With Contrast Exam date and time: 03/12/2024 11:50 PM Age: 63 years old Clinical indication: Nausea and vomiting; Other: N/v; Prior surgery; Surgery date: 6+ months; Surgery type: Hyst; Additional info: N/v, leukocytosis, thrombocytopenia TECHNIQUE: Imaging protocol: Computed tomography of the abdomen and pelvis with contrast. Radiation optimization: All CT scans at this facility use at least one of these dose optimization techniques: automated exposure control; mA and/or kV adjustment per patient size (includes targeted exams where dose is matched to clinical indication); or iterative reconstruction. Contrast material: OMNI 350; Contrast volume: 100 ml; Contrast route: INTRAVENOUS (IV); COMPARISON: CT angio chest PE protcl [id number] 09/18/2020 1:31 PM RADIATION DOSE METRICS: Total DLP (mGy-cm): 299 FINDINGS: Liver: Normal. No mass. Gallbladder and bile ducts: Normal. No calcified stones. No ductal dilation. Pancreas: Normal. No ductal dilation. Spleen: Normal. No splenomegaly. Adrenal glands: Normal. No mass. Kidneys and ureters: Normal. No hydronephrosis. Stomach and bowel: Unremarkable. No obstruction. No mucosal thickening. Appendix: The appendix is not visualized but there are no secondary signs of acute appendicitis. Intraperitoneal space: Unremarkable. No free air. No significant fluid collection. Vasculature: Unremarkable. No abdominal aortic aneurysm. Lymph nodes: Unremarkable. No enlarged lymph nodes. Urinary bladder: Unremarkable as visualized. Reproductive: Unremarkable as visualized. Bones/joints: Unremarkable. No acute fracture. Soft tissues: Unremarkable. CT/CT chest abdpel w/*[id number] IMPRESSION: 1. No focal consolidation, pleural effusion or suspicious pulmonary nodules or masses. 2. There is a 2.1 cm hypodense lesion in the left adrenal gland which is incompletely assessed on this examination. Consider dedicated thyroid ultrasound for further evaluation. IMPRESSION: 1. No bowel obstruction or inflammatory process associated with the bowel. 2. No free air or significant free fluid in the abdomen or pelvis. 3. The appendix is not visualized but there are no secondary signs of acute appendicitis.
[2024-03-12 23:37] VITALS: BP 110/89; PULSE 83; O2SAT 96
[2024-03-12 23:53] LABS: Fibrinogen 706 mg/dL (174-498); Partial Thromboplastin Time 31.9 SECONDS (23.9-36.7)
[2024-03-12] MEDS: iohexol 350 mg/mL 500 mL Btl (per mL) IV (23:53)
[2024-03-12 23:59] LABS: Lactate Dehydrogenase 590 U/L (135-214)
[2024-03-13] VITALS (16 sets, daily range): BP systolic 97–129; BP diastolic 53–70; PULSE 75–89; O2SAT 90–96
[2024-03-13] MEDS: sodium chloride 0.9% 1,000 ML 999 ML IV (00:16)
[2024-03-13 00:43] LABS: Procalcitonin 0.08 ng/mL (0-0.5)
--- NOTE | 2024-03-13 03:40 | PC.NURSE ---
Report was called by this nurse to Nieves Benoit at [facility]. All questions and concerns were addressed at time of report.
--- NOTE | 2024-03-13 03:40 | PC.NURSE ---
Patient updated on transfer status and transfer location. Patient had no questions or concerns.
[2024-03-13 11:19] LABS: Absolute Neutrophil 15.3 10^3/cmm (1.4-6.5); Absolute Segmented Neutrophil 14.5 10/cmm (1.6-7.1); Band Neutrophils Absolute 0.8 10^3/cmm (0.0-1.2); Lymphocytes 13 %; Monocytes Absolute 1.2 10^3/cmm (0.1-0.6); Segmented Neutrophils 36 %
[2024-03-13 11:20] LABS: Corrected White Blood Count 37.2 10^3/cmm (4.8-10.8); Lymphocytes Absolute 8.8 10^3/cmm (1.2-3.4)
[2024-03-13 11:23] LABS: Blastocytes 3 % (0-0)
[2024-03-13] MEDS: D5-NS 0.45% + KCL 20 mEq 20 MEQ/1,000 ML BAG 75 MEQ IV (11:33)
== END 2024-03-13 12:27 ==
PROVIDERS: Emergency Provider Emergency Medicine; PCP Internal Medicine
DX: D72.829 Elevated white blood cell count, unspecified (principal); D64.9 Anemia, unspecified; Z79.82 Long term (current) use of aspirin; J43.9 Emphysema, unspecified; Z72.0 Tobacco use
CPT/HCPCS: 36415; 71260; 74177; 80053; 81001; 83605; 83615; 83690; 83735; 84145; 85007; 85025; 85048; 85049; 85384; 85610; 85730; 87086; 96361; 96374; 99285; J7030; Q9967

== ENCOUNTER 2024-08-29 09:59 | Outpatient (CLI) | payer OTHER, SELFPAY ==
[2024-08-29 10:15] LABS: Hematocrit 24.9 % (36-47); Lymphocytes # 0.2 10^3/uL (0.8-4.8); Lymphocytes % 86.4 %; Mean Corpuscular HGB Conc 33.3 g/dL (30-55); Mean Corpuscular Hemoglobin 30.3 pg (27-33); Mean Corpuscular Volume 90.9 fl (85-98); Neutrophils % 13.6 %; Nucleated Red Blood Cells % 0 %; Red Blood Count 2.74 10^6/uL (3.85-5.65); Red Cell Distribution Width 14.1 % (12.1-15.1)
[2024-08-29 11:00] LABS: Platelet Count 4 10^3/cmm (157-399)
[2024-08-29 11:01] LABS: Neutrophils # 0.03 10^3/uL (1.8-7.7); White Blood Count 0.22 10^3/uL (3.29-11.43)
[2024-08-29 11:04] LABS: Slide Review Slide Review Perform
== END 2024-08-29 10:00 | disposition home or self-care (01) ==
PROVIDERS: PCP Internal Medicine
DX: C92.00 Acute myeloblastic leukemia, not having achieved remission (principal)
CPT/HCPCS: 85025

== ENCOUNTER 2024-09-20 07:30 | Oncology outpatient (recurring) (ONCR) | payer MEDICAID, SELFPAY ==
[2024-09-13 07:44] VITALS: BP 134/75; PULSE 68; RESP 16; TEMP 36.6; O2SAT 99
[2024-09-13 09:15] VITALS: BP 123/76; PULSE 56; RESP 16; TEMP 36.9; O2SAT 95
[2024-09-13 09:40] VITALS: BP 124/63; PULSE 53; RESP 17; TEMP 36.3; O2SAT 96
[2024-09-13 10:36] LABS: Platelet Count 34 10^3/cmm (157-399)
[2024-09-20] VITALS (9 sets, daily range): BP systolic 100–128; BP diastolic 50–85; PULSE 68–82; RESP 15–17; TEMP 36.3–37.2; O2SAT 91–98
[2024-09-20 08:35] LABS: Lymphocytes # 0.4 10^3/uL (0.8-4.8); Lymphocytes % 21.8 %; Mean Corpuscular HGB Conc 33.2 g/dL (30-55); Mean Corpuscular Volume 90.4 fl (85-98); Monocytes # 0.4 10^3/uL (0.2-0.9); Monocytes % 19.7 %; Neutrophils % 31.6 %; Red Cell Distribution Width 14.1 % (12.1-15.1); White Blood Count 1.93 10^3/uL (3.29-11.43)
[2024-09-20 08:59] LABS: Slide Review Slide Review Perform
[2024-09-20 09:05] LABS: Hematocrit 20.8 % (36-47); Platelet Count 6 10^3/cmm (157-399)
[2024-09-20 09:06] LABS: Neutrophils # 0.61 10^3/uL (1.8-7.7)
[2024-09-20] MEDS: sodium chloride 0.9% 250 mL Bag IV (09:48)
[2024-09-20 13:20] LABS: Hematocrit 22.3 % (36-47); Mean Corpuscular HGB Conc 34.1 g/dL (30-55); Mean Corpuscular Hemoglobin 30.4 pg (27-33); Mean Corpuscular Volume 89.2 fl (85-98); Mean Platelet Volume 8.7 fL (7.4-10.4); Platelet Count 44 10^3/cmm (157-399); Red Cell Distribution Width 13.7 % (12.1-15.1); White Blood Count 3.01 10^3/uL (3.29-11.43)
[2024-09-20 14:17] LABS: Slide Review Slide Review Perform; Total Cells Counted 100 (0-100)
[2024-09-20 14:18] LABS: Absolute Eosinophils 0.1 10^3/cmm (0.0-0.7); Absolute Neutrophil 1.1 10^3/cmm (1.4-6.5); Absolute Segmented Neutrophil 0.9 10/cmm (1.6-7.1); Band Neutrophils Absolute 0.2 10^3/cmm (0.0-1.2); Eosinophils 2 %; Lymphocytes 22 %; Lymphocytes Absolute 0.7 10^3/cmm (1.2-3.4); Monocytes Absolute 1.1 10^3/cmm (0.1-0.6); Platelet Estimate Decreased (Normal); Polychromasia 1+; Segmented Neutrophils 31 %
== END 2024-09-24 23:59 | disposition home or self-care (01) ==
PROVIDERS: PCP Internal Medicine; Visit Provider Internal Medicine Hematology & Oncology
DX: Z53.9 Procedure and treatment not carried out, unspecified reason (principal); D64.9 Anemia, unspecified; C92.00 Acute myeloblastic leukemia, not having achieved remission
CPT/HCPCS: 36430; 36591; 85007; 85025; 85049; 86850; 86900; 86920; J7050; P9016